=== PATIENT | male | born 1995 | race Caucasian/White ===

== ENCOUNTER 2019-07-16 16:09 | Emergency (ER) | payer OTHER ==
[~2019-07-16] VITALS: Ht 180.3 cm; Wt 73.2 kg
--- NOTE | 2019-07-16 18:37 | REP ---
Right hand four views: There is question of a fracture at the base of the fourth digit metacarpal. This should be correlated with clinical point tenderness. It is seen on one-view. Mineralization and joint spaces are otherwise normal. There is no other fracture or dislocation. There are no calcifications or foreign bodies. Electronically Signed by Russel Reza MD 07/16/2019 06:29 P
[2019-07-16 19:03] VITALS: BP 128/89
[2019-08-02] MEDS ORDERED: SERT25TA88 PO (09:05)
== END 2019-07-16 19:04 | disposition home or self-care (01) ==
LOC: M ED 16:09
DX: S62.344A Nondisplaced fracture of base of fourth metacarpal bone, right hand, initial encounter for closed fracture (principal); W19.XXXA Unspecified fall, initial encounter; Y92.9 Unspecified place or not applicable; Y93.9 Activity, unspecified; Y99.9 Unspecified external cause status

== ENCOUNTER 2019-07-26 23:04 | Inpatient (IN) | payer OTHER ==
[~2019-07-26] VITALS: Ht 180.3 cm; Wt 73.5 kg
[2019-07-26] MEDS ORDERED: NS 1,000 ML IV ONE (23:15)
[2019-07-26 23:27] LABS: BASO % 0.5 % (0.0-1.0); EOS # 0.1 10^3/uL (0.0-0.5); EOS % 1.6 % (0.0-3.0); HEMATOCRIT 41.8 % (42.0-52.0); HEMOGLOBIN 14.6 g/dl (13.5-17.5); LYMPH # 4.2 10^3/uL (1.5-5.0); LYMPH % 56.7 % (24.0-44.0); MEAN CORPUSCULAR HEMOGLOBIN 33.3 pg (27.0-33.0); MEAN CORPUSCULAR HGB CONC 34.9 g/dl (32.0-36.5); MEAN CORPUSCULAR VOLUME 95.4 fl (80.0-96.0); MONO # 0.7 10^3/uL (0.0-0.8); MONO % 9.1 % (0.0-5.0); NEUTROPHILS # 2.4 10^3/uL (1.5-8.5); NEUTROPHILS % 31.8 % (36.0-66.0); PLATELET COUNT, AUTOMATED 260 10^3/uL (150-450); RED BLOOD COUNT 4.38 10^6/uL (4.30-6.10); WHITE BLOOD COUNT 7.5 10^3/uL (4.0-10.0)
[2019-07-27] LABS: ACETAMINOPHEN LEVEL < 2.0 UG/ML (10.0-30.0); ALBUMIN 4.1 GM/DL (3.2-5.2); ALT/SGPT 69 U/L (12-78); BILIRUBIN,DIRECT < 0.1 MG/DL (0.0-0.2); BILIRUBIN,TOTAL 0.2 MG/DL (0.2-1.0); BLOOD UREA NITROGEN 10 MG/DL (7-18); CALCIUM LEVEL 8.4 MG/DL (8.5-10.1); CARBON DIOXIDE LEVEL 32 MEQ/L (21-32); CHLORIDE LEVEL 106 MEQ/L (98-107); CPK CREATINE PHOSPHOKINASE 532 U/L (39-308); CREATININE FOR GFR 1.32 MG/DL (0.70-1.30); GLOMERULAR FILTRATION RATE > 60.0 (>60); GLUCOSE, FASTING 110 MG/DL (70-100); SALICYLATE LEVEL < 1.7 MG/DL (5.0-30.0); SODIUM LEVEL 144 MEQ/L (136-145); TOTAL PROTEIN 7.4 GM/DL (6.4-8.2)
[2019-07-27 00:17] LABS: AMPHETAMINES LEVEL URINE NEGATIVE (NEGATIVE); BARBITURATES URINE NEGATIVE (NEGATIVE); BENZODIAZEPINES URINE NEGATIVE (NEGATIVE); CANNABINOIDS URINE NEGATIVE (NEGATIVE); COCAINE METABOLITE URINE NEGATIVE (NEGATIVE); METHADONE URINE NEGATIVE (NEGATIVE); OPIATES URINE NEGATIVE (NEGATIVE); PHENCYCLIDINE URINE NEGATIVE (NEGATIVE)
[2019-07-27] MEDS ORDERED: MAALOX 30 ML SUSP *UDC PO PRN (15:00)
[2019-07-27] MEDS ORDERED: MOM 30ML SUSPENSION UDC PO PRN (15:00)
[2019-07-27] MEDS ORDERED: IBUPROFEN 400 MG TAB PO PRN (15:00)
[2019-07-27 20:40] VITALS: BP 134/83
[2019-07-28] MEDS ORDERED: traZODone 50 MG TAB PO PRN
[2019-07-28 06:57] VITALS: BP 136/93
[2019-07-28 06:58] VITALS: BP 136/93
[2019-07-28 09:00] VITALS: BP 167/97
[2019-07-28] MEDS: FOLIC ACID 1 MG TAB PO SCH (09:19)
[2019-07-28] MEDS: LORazepam 2 MG TAB PO PRN ×2 (09:19→11:40)
[2019-07-28] MEDS: THIAMINE 100 MG TAB PO SCH ×2 (09:19→21:05)
[2019-07-28] MEDS: MULTIVITAMINS/MINERALS THERAP 1 TAB PO SCH (09:19)
--- NOTE | 2019-07-28 10:37 | MHHPEPDOC ---
General Date Of Admission: Jul 27, 2019 Legal Status: 9.37 Chief Complaint "I was drinking and took an OD pills" History of Present Illness HISTORY OF THE PRESENT ILLNESS: Patient is a 23 -year-old , male, who presented to the ED Friday night via ambulance. His had called EMS reporting the patient had taken 11 buspirone pills. In the ED he reported that he took pills because he wanted to give up. He also reported that he has been having a difficult time for a few weeks and he feels like a failure, though he did not elaborate on these feelings in the ED. He also reported that he has a history of feeling like he wishes he would go to sleep and not wake up but denies SI. Psychiatric Review of Systems Depression (2 or more weeks): depressed mood (denies at the momnt but reports depressed mood on admission), anhedonia (no longer interested in video games like he used to be), insomnia/hypersomnia, feelings of excess/guilt, feelings of worthlesness, decreased energy, difficulty concentrating, suicidal thoughts Bijal (4 or more days of): denies Psychosis: denies PTSD: denies Anxiety: situational anxiety, stressor related anxiety, panic attacks (once a month) Anxiety/ 6 months or more of: restlessness, keyed up, difficulty concentrating, muscle tension, sleep disturbance Past Psychiatric History Previous Psychiatric Diagnosis: depression and anxiety, behavioral health at [place], never medicated. Previous Psychiatric Admissions: none. Suicide Attempts: none prior to this. Psychiatric Follow-up:none. Psychiatric medications: none Past Medical History Medical Problems none Head Injury: No Seizures: No Hospitalizations: No Surgeries: No Family Medical/Psychiatric HX Medical Problems Bio father - testicular cancer, possibly mid 50's Psychiatric Disorders: No Addiction: Yes (Bio father) Suicide Attemps/Completions: No Addiction History nicotine (vape for 4 years), alcohol (1-3 on weekdays and 6-9 on weekends), denies (illicit drug use) Social History Childhood: raised by bio mother and adoptive father. Abuse/Trauma: none. Current Living Situation: lives in a home with , 2 y/o daughter and dog. Education: High school diploma. Employment: [employer]. Social Support: reports good family and friend support. Legal: none. Marital: , 1 2y/o daughter Mental Status Examination General Appearance: well groomed, appears stated age, hospital scubs/clothing Build: average Demeanor: average Eye Contact: average Activity: average Behavior: cooperative Speech: clear, normal volume, reg/rate,rhythm,volume Mood: euthymic, anxious Mood "better" Affect: appropriate, congruent, anxious Thought Process: logical/linear Thought Content (Delusions): none reported, denies SI, HI, AVH Thought Content (Other): none reported, appropriate, coherent Thought Content (Aggressive): none reported Perception (Hallucinations): none reported Perception (Other): none reported Cognition (Impairment of): none reported Cognition(Intelligence Est.): average Oriented: Awake, Alert, Oriented times three Insight: fair Judgment: Fair Psychosis: Denies Diagnoses depression unspecified r/o substance induced depression alcohol use d/o A-FIB/CHADSVASC A-FIB History Current/History of A-Fib/PAF?: No Current PO Anticoag Therapy: No Treatment Treatment ordered: NONE Reason Anticoagulant not given: Not indicated/[id number] Assessment Patient reports he couldn't believe he would ever attempt suicide. He remembers drinking a lot on Friday, feeling really sad and decided to take some pills (buspar that a friend had left in his home when he lived in [place] and was not prescribed to him). He does not remember what pills he took (advised him it was buspar) but remembers taking the OD, and doesn't fully remember how he ended up in the hospital. He knows his contacted someone and he was brought in by ambulance. He reports that he remembers feeling relieved when he woke up, and happy to be alive after he had overdosed. He states that he never thought he w ould do something like this, and is open to getting help so that this never happens again. He reports he has felt depressed for a long time and has been having on and off anxiety for a while but has never officially been diagnosed with depression or anxiety. He is agreeable to starting zoloft for depression and anxiety, risks/benefits discussed, and states his takes it and finds it beneficial. Will also provide him with vistaril 25mg q6hr prn anxiety. He is on a [facility] protocol for alcohol withdrawal and states he's still having withdrawal symptoms improved with ativan. He is open to senior living treatment for alcohol use d/o in the future. He denies SI/HI, hallucinations, delusions. Feels safe here. Initial Treatment Plan 1. Patient was admitted on a 9.39 status. 2. Complete history was obtained. 3. With patients permission, family will be contacted and database will be expanded. 4. Patients medication regimen will be reviewed and changed accordingly. 5. Patient will be provided with protected environment. 6. Patient will be treated with individual, group, and milieu therapies. 7. Patient will receive supportive psych-education. 8. Discharge planning will commence immediately. 9. Outpatient follow-up treatment will be strongly recommended. 10. The initial treatment plan will focus initially on: * Depression. * Risk for suicide. 11. ciwa protocol with ativan available for alcohol withdrawal, zoloft 25mg daily, vistaril 25mg q6hr prn anxiety ESTIMATED LENGTH OF STAY: 7-10 DAYS. TIME SPENT COUNSELING AND COORDINATING INITIAL CARE: 60 minutes. Vital Signs Vital Signs Date Time Temp Pulse Resp B/P (MAP) Pulse Ox O2 Delivery O2 Flow Rate FiO2 07/28/19 09:00 52 167/97 07/28/19 06:57 98.3 12 07/27/19 20:40 100 07/27/19 18:45 Room Air Medications No Active Prescriptions or Reported Meds Allergies Coded Allergies: No Known Allergies (Verified Allergy, Unknown, 07/26/19) KANIKA PELLETIER DO Jul 28, 2019 10:37 am
[2019-07-28 11:19] VITALS: BP 160/80
[2019-07-28 12:27] VITALS: BP 158/96
[2019-07-28] MEDS ORDERED: hydrOXYzine 25 MG TAB PO PRN (13:15)
[2019-07-28] MEDS ORDERED: SERTRALINE HCL 25 MG TABLET PO ONE (13:30)
[2019-07-28 14:45] VITALS: BP 150/104
--- NOTE | 2019-07-28 16:42 | ECGEPIP ---
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
--- NOTE | 2019-07-28 18:29 | HPEPDOC ---
General Date of Admission Jul 27, 2019 at 14:56 Date of Service: Jul 28, 2019 Chief Complaint The patient is a 23-year-old male admitted with a reason for visit of Unspecified Depressive Disorder. Source: Patient, RN notes reviewed Exam Limitations: No limitations Timing/Duration: Day(s) Severity: Mild Associated Symptoms: Denies Symptoms History of Present Illness This 23-year-old male seen in the mental health unit. He apparently has depression with suicidal ideation. He took an overdose of BuSpar tablets. He took 11 tablets of unknown size. Patient states he did not have any real effects from doing this. He did not note excessive sleepiness, he did not have any nausea or vomiting. The patient also does have a significant alcohol use history. He can drink anywhere from one to 3 drinks per day during the week to up to 9 drinks per day during the weekend. He tends to drink "white claw" and "[employer] Ice". He notes that when he stops drinking. He does feel shakiness the next day. Home Medications No Active Prescriptions or Reported Meds Allergies Coded Allergies: No Known Allergies (Verified Allergy, Unknown, 07/26/19) Past Medical History Medical History Patient denies any significant past medical history that he sees a doctor for Surgical History Patient denies surgical history Family History Significant Family History: Other (there is family history of alcoholism) Social History * Smoker: current smoker (the patient vapes and has been for 5-6 years) Alcohol: heavy (Kristina 3 drinks up to 9 drinks per day) Drugs: marijuana (states he used this during middle school otherwise does not use anything) Recent Travel/Sick Contacts: Denies: Recent travel, Recent sick contacts Psychosocial History: Depression The patient is in the . He maintains a good physical regimen running at least 2 miles per day or so. A-FIB/CHADSVASC A-FIB History Current/History of A-Fib/PAF?: No Current PO Anticoag Therapy: No Review of Systems Other systems 10 systems reviewed and are otherwise negative except as stated in the HPI. Physical Examination General Exam: Positive: Cooperative, No Acute Distress Eye Exam: Positive: PERRLA, Conjunctiva & lids normal, Other Eye Symptoms (the patient does have scleral and conjunctival injection) ENT Exam: Positive: Atraumatic, Mucous membr. moist/pink, Pharynx Normal, Nares Patent Neck Exam: Positive: Supple Chest Exam: Positive: Clear to auscultation Heart Exam: Positive: Rate Normal Abdomen Exam: Positive: Normal bowel sounds Extremity Exam: Positive: Normal pulses Skin Exam: Positive: Nl turgor and temperature Neuro Exam: Positive: Other (the patient is tremulous, which would be consistent with alcohol withdrawal) Psych Exam: Positive: Oriented x 3, Other (the patient does have findings of depression) Vital Signs Vital Signs Date Time Temp Pulse Resp B/P (MAP) Pulse Ox O2 Delivery O2 Flow Rate FiO2 07/28/19 14:45 150/104 07/28/19 12:27 99.5 64 16 07/27/19 20:40 100 07/27/19 18:45 Room Air Assessment/Plan 1. Intentional overdose. The patient overdose with 11 tablets of BuSpar. He does not appear to have had any negative medical sequelae from this. 2. Alcohol intoxication/withdrawal. The patient was admitted with a blood alcohol level of 330 mg/dL. He is appropriately placed on an alcohol withdrawal protocol by Ciwa scale. The patient endorses making efforts to maintain sobriety. 3. Mild rhabdomyolysis. The patient does have elevated CK at 532. Creatinine is 1.32. Patient does not have a known history of kidney disease. Plans are to encourage hydration and to recheck CK and creatinine for trend. The patient is otherwise medically stable. We will continue to follow CK and creatinine. Plan / VTE VTE Prophylaxis Ordered?: No (patient is fully ambulatory) VTE Exclusion Mechanical Proph: Low Risk for VTE VTE Exclusion Pharmacological: At Low Risk for VTE Plan Diet: Continue Current Activity: Continue Current Medications: Other Med: (patient will receive Ativan per [facility] protocol) Diagnostics: Repeat Labs in AM Anticipated Discharge: Home JOSH OHOKS MD Jul 28, 2019 18:29
[2019-07-29 06:55] VITALS: BP 131/63
[2019-07-29 07:34] LABS: BLOOD UREA NITROGEN 9 MG/DL (7-18); CALCIUM LEVEL 9.8 MG/DL (8.5-10.1); CARBON DIOXIDE LEVEL 31 MEQ/L (21-32); CHLORIDE LEVEL 100 MEQ/L (98-107); CPK CREATINE PHOSPHOKINASE 153 U/L (39-308); CREATININE FOR GFR 1.15 MG/DL (0.70-1.30); GLOMERULAR FILTRATION RATE > 60.0 (>60); GLUCOSE, FASTING 93 MG/DL (70-100); SODIUM LEVEL 138 MEQ/L (136-145)
[2019-07-29 08:20] VITALS: BP 144/93
[2019-07-29] MEDS: THIAMINE 100 MG TAB PO SCH ×2 (08:45→20:18)
[2019-07-29] MEDS: MULTIVITAMINS/MINERALS THERAP 1 TAB PO SCH (08:45)
[2019-07-29] MEDS: FOLIC ACID 1 MG TAB PO SCH (08:45)
[2019-07-29] MEDS: SERTRALINE HCL 25 MG TABLET PO SCH (08:46)
--- NOTE | 2019-07-29 10:57 | MHIPNPDOC ---
[facility] Progress Note Progress Note DATE OF SERVICE: 07/29/19 HISTORY: Patient is a 23 -year-old , male, who presented to the ED Friday night via ambulance. His had called EMS reporting the patient had taken 11 buspirone pills. In the ED he reported that he took pills because he wanted to give up. He also reported that he has been having a difficult time for a few weeks and he feels like a failure, though he did not elaborate on these feelings in the ED. He also reported that he has a history of feeling like he wishes he would go to sleep and not wake up but denies SI. Patient reports he couldn't believe he would ever attempt suicide. He remembers drinking a lot on Friday, feeling really sad and decided to take some pills (buspar that a friend had left in his home when he lived in [place] and was not prescribed to him). He does not remember what pills he took (advised him it was buspar) but remembers taking the OD, and doesn't fully remember how he ended up in the hospital. He knows his contacted someone and he was brought in by ambulance. He reports that he remembers feeling relieved when he woke up, and happy to be alive after he had overdosed. He states that he never thought he would do something like this, and is open to getting help so that this never happens again. He reports he has felt depressed for a long time and has been having on and off anxiety for a while but has never officially been diagnosed with depression or anxiety. He is agreeable to starting zoloft for depression and anxiety, risks/benefits discussed, and states his takes it and finds it beneficial. Will also provide him with vistaril 25mg q6hr prn anxiety. He is on a [facility] protocol for alcohol withdrawal and states he's still having withdraw al symptoms improved with ativan. He is open to skilled nursing treatment for alcohol use d/o in the future. He denies SI/HI, hallucinations, delusions. Feels safe here. VITAL SIGNS: See below. NEW TEST RESULTS: CPK wnl CURRENT MEDICATIONS: See below. MENTAL STATUS EXAMINATION: General Appearance: well groomed, appears stated age, hospital scrubs/clothing Build: average Demeanor: average Eye Contact: average Activity: average, minor had tremors secondary withdrawal Behavior: cooperative Speech: clear, normal volume, reg/rate,rhythm,volume Mood: euthymic, anxious Mood "ok" Affect: appropriate, congruent, anxious Thought Process: logical/linear Thought Content (Delusions): none reported, denies SI, HI, AVH Thought Content (Other): none reported, appropriate, coherent Thought Content (Aggressive): none reported Perception (Hallucinations): none reported Perception (Other): none reported Cognition (Impairment of): none reported Cognition(Intelligence Est.): average Oriented: Awake, Alert, Oriented times three Insight: fair Judgment: Fair Psychosis: Denies DIAGNOSES: depression unspecified r/o substance induced depression alcohol use d/o ASSESSMENT:Pt seen and states he feels better today and that his alcohol withdrawal is improving and is only experiencing very minor tremors this arnaldo aldanag. Last took ativan yesterday for withdrawal symptoms. States he's tolerating his zoloft he started yesterday and is finding it beneficial. Vistaril is beneficial for his anxiety. States he slept well last night. He is social in the milieu and attending groups daily. States he talked with his yesterday and she is supportive of him. He denies SI/HI, hallucinations, delusions. Feels safe here. MANAGEMENT PLAN: continue plan Medications: [facility] protocol with ativan available for alcohol withdrawal zoloft 25mg daily vistaril 25mg q6hr prn anxiety TIME SPENT: 30 minutes. Vital Signs Vital Signs Date Time Temp Pulse Resp B/P (MAP) Pulse Ox O2 Delivery O2 Flow Rate FiO2 07/29/19 08:20 59 144/93 07/29/19 06:55 98.0 14 07/27/19 20:40 100 07/27/19 18:45 Room Air Laboratory Data 24H Labs Laboratory Tests 2 07/29/19 06:42: Anion Gap 7L, Glomerular Filtration Rate > 60.0, Blood Urea Nitrogen 9, Creatinine 1.15, Sodium Level 138, Potassium Level 4.0, Chloride Level 100, Carbon Dioxide Level 31, Calcium Level 9.8#, Total Creatine Kinase 153 CBC/BMP Laboratory Tests 07/29/19 06:42 Calcium Level 9.8 # Current Medications Current Medications Medications (Trade) Dose Ordered Sig/Pooja Route PRN Reason Start Time Stop Time Status Last Admin Dose Admin Al Hydrox/Mg Hydrox/Simethicone (Mylanta) 30 ml Q4HP PRN PO HEARTBURN/INDIGESTION 07/27/19 15:00 Folic Acid (Folic Acid) 1 mg DAILY PO 07/28/19 09:00 07/29/19 08:45 Home Med (Med Rec Complete!) ASDIRECTED XX 07/27/19 12:15 07/27/19 12:15 DC Hydroxyzine HCl (Atarax) 25 mg Q6HP PRN PO ANXIETY 07/28/19 13:15 07/28/19 21:05 Ibuprofen (Advil) 400 mg Q6HP PRN PO PAIN 07/27/19 15:00 Lorazepam (Ativan) 2 mg ASDIRECTED PRN PO SEE PROTOCOL 07/28/19 00:00 07/28/19 11:40 Magnesium Hydroxide (Milk Of Magnesia) 30 ml DAILYPRN PRN PO CONSTIPATION 07/27/19 15:00 Multivitamins (Theragram-M) 1 tab DAILY PO 07/28/19 09:00 07/29/19 08:45 Sertraline HCl (Zoloft) 25 mg DAILY PO 07/29/19 09:00 07/29/19 08:46 Thiamine HCl (Thiamine HCl) 100 mg BID PO 07/28/19 09:00 07/31/19 08:59 07/29/19 08:45 Trazodone HCl (Desyrel) 50 mg QHSP PRN PO INSOMNIA 07/28/19 00:00 07/28/19 04:00 DC Allergies Coded Allergies: No Known Allergies (Verified Allergy, Unknown, 07/26/19) KANIKA PELLETIER DO Jul 29, 2019 10:57 am
--- NOTE | 2019-07-29 14:27 | IPNPDOC ---
Text Note Date of Service The patient was seen on 07/29/19. NOTE Laboratory data reviewed. Serum creatinine has decreased from 1.32 to 1.15. CK has normalized from 532 to153. Rhabdomyolysis has resolved. Dehydration has resolved. Patient does not have any acute medical issues and we will sign off for now. Please do not hesitate to contact us if concerns occur. VS,Fishbone, I+O VS, Fishbone, I+O Laboratory Tests 07/29/19 06:42 Calcium Level 9.8 # Vital Signs Date Time Temp Pulse Resp B/P (MAP) Pulse Ox O2 Delivery O2 Flow Rate FiO2 07/29/19 08:20 59 144/93 07/29/19 06:55 98.0 14 07/27/19 20:40 100 07/27/19 18:45 Room Air JOSH HOOKS MD Jul 29, 2019 14:27
[2019-07-29 17:25] VITALS: BP 151/93
[2019-07-30 06:49] VITALS: BP 127/67
[2019-07-30 07:30] VITALS: BP 127/67
[2019-07-30] MEDS: SERTRALINE HCL 25 MG TABLET PO SCH (08:27)
[2019-07-30] MEDS: FOLIC ACID 1 MG TAB PO SCH (08:27)
[2019-07-30] MEDS: MULTIVITAMINS/MINERALS THERAP 1 TAB PO SCH (08:27)
[2019-07-30] MEDS: THIAMINE 100 MG TAB PO SCH ×2 (08:27→20:23)
--- NOTE | 2019-07-30 10:29 | MHIPNPDOC ---
[facility] Progress Note Progress Note DATE OF SERVICE: 07/30/19 HISTORY: Patient is a 23 -year-old , male, who presented to the ED Friday night via ambulance. His had called EMS reporting the patient had taken 11 buspirone pills. In the ED he reported that he took pills because he wanted to give up. He also reported that he has been having a difficult time for a few weeks and he feels like a failure, though he did not elaborate on these feelings in the ED. He also reported that he has a history of feeling like he wishes he would go to sleep and not wake up but denies SI. Patient reports he couldn't believe he would ever attempt suicide. He remembers drinking a lot on Friday, feeling really sad and decided to take some pills (buspar that a friend had left in his home when he lived in [place] and was not prescribed to him). He does not remember what pills he took (advised him it was buspar) but remembers taking the OD, and doesn't fully remember how he ended up in the hospital. He knows his contacted someone and he was brought in by ambulance. He reports that he remembers feeling relieved when he woke up, and happy to be alive after he had overdosed. He states that he never thought he would do something like this, and is open to getting help so that this never happens again. He reports he has felt depressed for a long time and has been having on and off anxiety for a while but has never officially been diagnosed with depression or anxiety. He is agreeable to starting zoloft for depression and anxiety, risks/benefits discussed, and states his takes it and finds it beneficial. Will also provide him with vistaril 25mg q6hr prn anxiety. He is on a [facility] protocol for alcohol withdrawal and states he's still having withdrawal symptoms improved with ativan. He is open to care home treatment for alcohol use d/o in the future. He denies SI/HI, hallucinations, delusions. Feels safe here. VITAL SIGNS: See below. NEW TEST RESULTS: CPK wnl CURRENT MEDICATIONS: See below. MENTAL STATUS EXAMINATION: General Appearance: well groomed, appears stated age, hospital scrubs/clothing Build: average Demeanor: average Eye Contact: average Activity: average, minor had tremors secondary withdrawal Behavior: cooperative Speech: clear, normal volume, reg/rate,rhythm,volume Mood: euthymic, anxious Mood "I feel good" Affect: appropriate, congruent, anxious Thought Process: logical/linear Thought Content (Delusions): none reported, denies SI, HI, AVH Thought Content (Other): none reported, appropriate, coherent Thought Content (Aggressive): none reported Perception (Hallucinations): none reported Perception (Other): none reported Cognition (Impairment of): none reported Cognition(Intelligence Est.): average Oriented: Awake, Alert, Oriented times three Insight: fair Judgment: Fair Psychosis: Denies DIAGNOSES: depression unspecified r/o substance induced depression alcohol use d/o ASSESSMENT:Pt seen and states he feels good today. He reports that he doesn't feel any symptoms of alcohol withdrawal today, but does state that he has "a little shakiness" consistently. Last took Ativan two days ago on Friday. States he's tolerating his Zoloft and is finding it beneficial. He states he took the Vistaril on Friday for anxiety and found it beneficial. States he slept poorly last night which he attributes to his roommate snoring and someone slamming doors in the hallway. He is social in the milieu and attending groups daily. States he talked with his yesterday and she is supportive of him. He denies SI/HI, hallucinations, delusions. Feels safe here. MANAGEMENT PLAN: continue plan Medications: [facility] protocol with ativan available for alcohol withdrawal zoloft 25mg daily vistaril 25mg q6hr prn anxiety TIME SPENT: 30 minutes. Vital Signs Vital Signs Date Time Temp Pulse Resp B/P (MAP) Pulse Ox O2 Delivery O2 Flow Rate FiO2 07/30/19 07:30 76 127/67 07/30/19 06:49 97.5 14 07/27/19 20:40 100 07/27/19 18:45 Room Air Current Medications Current Medications Medications (Trade) Dose Ordered Sig/Pooja Route PRN Reason Start Time Stop Time Status Last Admin Dose Admin Al Hydrox/Mg Hydrox/Simethicone (Mylanta) 30 ml Q4HP PRN PO HEARTBURN/INDIGESTION 07/27/19 15:00 Folic Acid (Folic Acid) 1 mg DAILY PO 07/28/19 09:00 07/30/19 08:27 Home Med (Med Rec Complete!) ASDIRECTED XX 07/27/19 12:15 07/27/19 12:15 DC Hydroxyzine HCl (Atarax) 25 mg Q6HP PRN PO ANXIETY 07/28/19 13:15 07/28/19 21:05 Ibuprofen (Advil) 400 mg Q6HP PRN PO PAIN 07/27/19 15:00 Lorazepam (Ativan) 2 mg ASDIRECTED PRN PO SEE PROTOCOL 07/28/19 00:00 07/28/19 11:40 Magnesium Hydroxide (Milk Of Magnesia) 30 ml DAILYPRN PRN PO CONSTIPATION 07/27/19 15:00 Multivitamins (Theragram-M) 1 tab DAILY PO 07/28/19 09:00 07/30/19 08:27 Sertraline HCl (Zoloft) 25 mg DAILY PO 07/29/19 09:00 07/30/19 08:27 Thiamine HCl (Thiamine HCl) 100 mg BID PO 07/28/19 09:00 07/31/19 08:59 07/30/19 08:27 Trazodone HCl (Desyrel) 50 mg QHSP PRN PO INSOMNIA 07/28/19 00:00 07/28/19 04:00 DC Allergies Coded Allergies: No Known Allergies (Verified Allergy, Unknown, 07/26/19) KANIKA PELLETIER DO Jul 30, 2019 10:29
[2019-07-30 16:04] VITALS: BP 140/92
[2019-07-30 18:10] VITALS: BP 140/92
[2019-07-31 06:09] VITALS: BP 150/69
[2019-07-31] MEDS: SERTRALINE HCL 25 MG TABLET PO SCH (08:11)
[2019-07-31] MEDS: FOLIC ACID 1 MG TAB PO SCH (08:11)
[2019-07-31] MEDS: MULTIVITAMINS/MINERALS THERAP 1 TAB PO SCH (08:11)
[2019-07-31 16:22] VITALS: BP 138/86
--- NOTE | 2019-07-31 21:56 | MHIPN ---
DATE: 07/31/2019 The patient today states "I am doing great." He says that he is not feeling depressed. He says that he did not sleep good but it is because his roommate snores. He is denying being suicidal. MENTAL STATUS EXAMINATION: This patient is alert and oriented times three. He is verbally spontaneous. No formal thought disorder noted. Eye contact is fair. Psychomotor activity is normal. Mood is good. Affect is full range and appropriate. He is not psychotic, suicidal or homicidal. Concentration is fair. Memory intact. Insight and judgment fair. DIAGNOSES: 1. Unspecified depressive disorder. 2. Rule out substance induced depression. 3. Alcohol use disorder. TREATMENT PLAN: At this point, we will further evaluate the patient for continued elevation and stabilization of his mood and for continued resolution of any suicidal ideation.
[2019-08-01] MEDS: traZODone 50 MG TAB PO PRN ×2 (00:27→22:23)
[2019-08-01 06:43] VITALS: BP 106/79
[2019-08-01] MEDS: MULTIVITAMINS/MINERALS THERAP 1 TAB PO SCH (08:03)
[2019-08-01] MEDS: FOLIC ACID 1 MG TAB PO SCH (08:03)
[2019-08-01] MEDS: SERTRALINE HCL 25 MG TABLET PO SCH (08:03)
[2019-08-01] MEDS: SODIUM CHLORIDE NASAL 0.65% SPRAY BTL (OCEAN) PRN (14:41)
[2019-08-01 16:34] VITALS: BP 128/77
[2019-08-02 06:41] VITALS: BP 111/56
[2019-08-02] MEDS: SERTRALINE HCL 25 MG TABLET PO SCH (08:20)
--- NOTE | 2019-08-02 09:03 | MHDSPDOC ---
[facility] Discharge Summary Discharge Summary DATE OF ADMISSION: Jul 27, 2019 at 2:56 pm DATE OF DISCHARGE: Aug 02, 2019 DISCHARGE DIAGNOSES: depression unspecified r/o substance induced depression alcohol use d/o REASON FOR ADMISSION: Patient is a 23 -year-old , male, who presented to the ED Friday night via ambulance. His had called EMS reporting the patient had taken 11 buspirone pills. In the ED he reported that he took pills because he wanted to give up. He also reported that he has been having a difficult time for a few weeks and he feels like a failure, though he did not elaborate on these feelings in the ED. He also reported that he has a history of feeling like he wishes he would go to sleep and not wake up but denies SI. Patient reports he couldn't believe he would ever attempt suicide. He remembers drinking a lot on Friday, feeling really sad and decided to take some pills (buspar that a friend had left in his home when he lived in [place] and was not pr escribed to him). He does not remember what pills he took (advised him it was buspar) but remembers taking the OD, and doesn't fully remember how he ended up in the hospital. He knows his contacted someone and he was brought in by ambulance. He reports that he remembers feeling relieved when he woke up, and happy to be alive after he had overdosed. He states that he never thought he would do something like this, and is open to getting help so that this never happens again. He reports he has felt depressed for a long time and has been having on and off anxiety for a while but has never officially been diagnosed with depression or anxiety. He is agreeable to starting zoloft for depression and anxiety, risks/benefits discussed, and states his takes it and finds it beneficial. Will also provide him with vistaril 25mg q6hr prn anxiety. He is on a [facility] protocol for alcohol withdrawal and states he's still having withdrawal symptoms improved with ativan. He is open to fdc treatment for alcohol use d/o in the future. He denies SI/HI, hallucinations, delusions. Feels safe here. CONSULTANTS INVOLVED: none TREATMENT AND PROGRESS ON THE UNIT : Pt was admitted to [facility], seen for psychiatric assessment and started on zoloft 25mg daily. He was provided vistaril 25mg q6hr prn anxiety and trazodone 50mg qhs prn insomnia. He was started on a ciwa protocol with ativan for alcohol withdrawal that he tolerated well with improvement of alcohol withdrawal symptoms to none and no longer requiring ativan for over 48hrs. Pt found his medications beneficial and tolerated them well. He attended groups daily during his stay. His symptoms improved with treatment. On day of discharge he denied depression, anxiety, insomnia, SI/HI, hallucinations, delusions. He was discharged home after Farhat meeting with follow-up at [facility] and [facility]. He felt safe for discharge. DISCHARGE ASSESSMENT: Pt seen and states he feels good today and is looking forward to going home today with his Farhat. He denies alcohol withdrawal symptoms. States he's tolerating his Zoloft and is finding it beneficial. He states Vistaril is beneficial for his anxiety and is tolerating it well. States he slept well last night. He is social in the milieu and attending groups daily. States his is supportive of him. He denies depression, anxiety, insomnia, SI/HI, hallucinations, delusions, alcohol withdrawal. Feels safe to be discharged home with his Farhat. MENTAL STATUS EXAMINATION ON DISCHARGE: General Appearance: well groomed, appears stated age, hospital scrubs/clothing Build: average Demeanor: average Eye Contact: average Activity: average Behavior: cooperative Speech: clear, normal volume, reg/rate,rhythm,volume Mood: euthymic, full range Mood "I feel good" Affect: appropriate, congruent Thought Process: logical/linear Thought Content (Delusions): none reported, denies SI, HI, AVH Thought Content (Other): none reported, appropriate, coherent Thought Content (Aggressive): none reported Perception (Hallucinations): none reported Perception (Other): none reported Cognition (Impairment of): none reported Cognition(Intelligence Est.): average Oriented: Awake, Alert, Oriented times three Insight: good Judgment: good Psychosis: Denies MEDICATIONS ON DISCHARGE: zoloft 25mg daily vistaril 25mg q6hr prn anxiety PLAN/FOLLOWUP ARRANGEMENTS: D/c home with follow-up at [facility] and [facility]. The amount of time spent in the coordination of care for this patient was approximately 30 minutes. Vital Signs/I&Os Vital Signs Date Time Temp Pulse Resp B/P (MAP) Pulse Ox O2 Delivery O2 Flow Rate FiO2 08/02/19 06:41 97.6 50 12 111/56 (74) 07/27/19 20:40 100 07/27/19 18:45 Room Air Medications No Active Prescriptions or Reported Meds Allergies Coded Allergies: No Known Allergies (Verified Allergy, Unknown, 07/26/19) KANIKA PELLETIER DO Aug 02, 2019 9:03 am
[2019-08-02] MEDS ORDERED: HYDR-3363 PO (09:05)
[2019-08-02] MEDS ORDERED: SERT25TA21 PO (09:05)
[2019-08-02] MEDS ORDERED: TRAZ-252 PO (09:05)
[2019-08-02] MEDS: SODIUM CHLORIDE NASAL 0.65% SPRAY BTL (OCEAN) PRN (09:39)
== END 2019-08-02 11:00 | disposition home or self-care (01) | DRG 881 ==
LOC: M ED 23:04 → M ED INP 07-27 14:56 → M PSY 07-27 20:01
PROVIDERS: ADMIT Psychiatry & Neurology Psychiatry; ATTEND Psychiatry & Neurology Psychiatry
DX: F32.9 Major depressive disorder, single episode, unspecified (principal); M62.82 Rhabdomyolysis; F10.10 Alcohol abuse, uncomplicated; F19.94 Other psychoactive substance use, unspecified with psychoactive substance-induced mood disorder; F17.200 Nicotine dependence, unspecified, uncomplicated

== ENCOUNTER 2019-08-29 20:33 | Inpatient (IN) | payer OTHER ==
[~2019-08-29] VITALS: Ht 180.3 cm; Wt 72.2 kg
[~2019-08-29 20:33] MED LIST: HYDR-3363 PO; SERT25TA21 PO; TRAZ-252 PO
[2019-08-29 21:04] LABS: RED BLOOD COUNT 5.12 10^6/uL (4.30-6.10)
[2019-08-29 21:05] LABS: HEMATOCRIT 45.6 % (42.0-52.0); HEMOGLOBIN 16.3 g/dl (13.5-17.5); MEAN CORPUSCULAR HEMOGLOBIN 31.8 pg (27.0-33.0); MEAN CORPUSCULAR HGB CONC 35.7 g/dl (32.0-36.5); MEAN CORPUSCULAR VOLUME 89.1 fl (80.0-96.0); PLATELET COUNT, AUTOMATED 250 10^3/uL (150-450)
[2019-08-29 21:25] LABS: AMPHETAMINES LEVEL URINE NEGATIVE (NEGATIVE); BARBITURATES URINE NEGATIVE (NEGATIVE); BENZODIAZEPINES URINE NEGATIVE (NEGATIVE); CANNABINOIDS URINE NEGATIVE (NEGATIVE); COCAINE METABOLITE URINE NEGATIVE (NEGATIVE); METHADONE URINE NEGATIVE (NEGATIVE); OPIATES URINE NEGATIVE (NEGATIVE); PHENCYCLIDINE URINE NEGATIVE (NEGATIVE)
[2019-08-29 21:40] LABS: ACETAMINOPHEN LEVEL < 2.0 UG/ML (10.0-30.0); ALBUMIN 4.4 GM/DL (3.2-5.2); ALT/SGPT 47 U/L (12-78); BILIRUBIN,DIRECT 0.1 MG/DL (0.0-0.2); BILIRUBIN,TOTAL 0.5 MG/DL (0.2-1.0); BLOOD UREA NITROGEN 11 MG/DL (7-18); CALCIUM LEVEL 8.7 MG/DL (8.5-10.1); CARBON DIOXIDE LEVEL 25 MEQ/L (21-32); CHLORIDE LEVEL 102 MEQ/L (98-107); CREATININE FOR GFR 0.91 MG/DL (0.70-1.30); ETHYL ALCOHOL (ETHANOL) 0.362 % (0.000-0.010); GLOMERULAR FILTRATION RATE > 60.0 (>60); GLUCOSE, FASTING 106 MG/DL (70-100); POTASSIUM SERUM 3.8 MEQ/L (3.5-5.1); SALICYLATE LEVEL < 1.7 MG/DL (5.0-30.0); SODIUM LEVEL 138 MEQ/L (136-145); TOTAL PROTEIN 8.2 GM/DL (6.4-8.2)
[2019-08-30] MEDS ORDERED: SERT25TA21 PO (12:57)
[2019-08-30] MEDS ORDERED: TRAZ1TAB10 PO (12:57)
[2019-08-30] MEDS ORDERED: HYDR-3363 PO (12:57)
[2019-08-30] MEDS ORDERED: OLANZapine ORAL DISINTEGRATING TAB 5MG PO PRN (17:00)
[2019-08-30] MEDS: THIAMINE 100 MG TAB PO SCH (17:00)
[2019-08-30] MEDS ORDERED: MAALOX 30 ML SUSP *UDC PO PRN (17:00)
[2019-08-30] MEDS ORDERED: LORazepam 2 MG TAB PO PRN (17:00)
[2019-08-30] MEDS ORDERED: MOM 30ML SUSPENSION UDC PO PRN (17:00)
[2019-08-30] MEDS ORDERED: IBUPROFEN 400 MG TAB PO PRN (17:00)
[2019-08-30 22:12] VITALS: BP 147/90
[2019-08-31 06:27] VITALS: BP 133/83
[2019-08-31 08:00] VITALS: BP 135/93
[2019-08-31] MEDS: MULTIVITAMINS/MINERALS THERAP 1 TAB PO SCH (08:45)
[2019-08-31] MEDS: FOLIC ACID 1 MG TAB PO SCH (08:45)
[2019-08-31] MEDS: NICOTINE 21MG/24HR 1 EA TRANSDERMAL TD SCH (08:45)
[2019-08-31] MEDS: THIAMINE 100 MG TAB PO SCH ×2 (08:45→23:00)
--- NOTE | 2019-08-31 11:59 | MHHPEPDOC ---
General Date Of Admission: Aug 30, 2019 Legal Status: 9.39 Chief Complaint "I want to go to rehab" History of Present Illness HISTORY OF THE PRESENT ILLNESS: Patient is a 24 -year-old , male, brought in by PD for making suicidal statements after a fight with his . Patient denies any SI on assessment, I wouldnt really do that!, and says he made the statements our of anger. Patient endorses being a heavy drinker, and says he frequently fights with his because, she thinks I can just quit without help. Patient presented to ER intoxicated and reported that him and his had gotten into a fight and that is why he was drinking. Patients called [facility] because patient was making SI statements. Patient stated that he does not remember making any statements. Patient was admitted 1 month ago to [facility] for a suicidal attempt. Patient stated he is not currently feeling suicidal. Patient denies HI, and AVH. Patient reported that he is a current patient at [facility] and his appointment was today 08/30/19. Patient reported that he is currently prescribed Zoloft, but hasnt been taking it because he doesnt think he needs it. Patient reported that he drinks EtOH daily and drinks to get drunk. Patient tried to explain chain of events that happened last night but there were many holes in his story. [facility] internal control specialist asked pt if he remembers making suicidal gestures and talking about jumping into the water and patient denied. [facility] internal control specialist spoke with patients who stated that patient was standing less than 5 feet from river at [facility]. Patients stated she had to talk him down and away from the river. Patients stated she does not feel like he is safe to go home because he often gets like this when he drinks and he is drinking daily. Patients also reported that patient is misusing his Zoloft. Patients reported that she is also going home to [place] for a few weeks to focus on her own mental health. Patients FARHAT informed [facility] internal control specialist that patient will be getting in trouble from the due to the issues his dr inking has caused. Psychiatric Review of Systems Depression (2 or more weeks): depressed mood, suicidal thoughts Bijal (4 or more days of): denies Psychosis: denies PTSD: denies Anxiety: denies Anxiety/ 6 months or more of: restlessness, keyed up, difficulty concentrating Past Psychiatric History Previous Psychiatric Diagnosis: depression and anxiety, behavioral health at [place]. depression unspecified, substance induced depression, alcohol use disorder Previous Psychiatric Admissions: Recent [facility] admission from 07/27-08/02. Suicide Attempts: Tried to OD on buspar prior to last 07/27 admission Psychiatric Follow-up: [facility] and [facility]. Psychiatric medications: zoloft 25mg daily, vistaril 25mg q6hr prn anxiety Past Medical History Medical Problems none Head Injury: No Seizures: No Hospitalizations: No Surgeries: No Family Medical/Psychiatric HX Medical Problems Bio father - testicular cancer, possibly mid 50's Psychiatric Disorders: No Addiction: Yes ((Bio father)) Suicide Attemps/Completions: No Addiction History nicotine (vape for 4 years), alcohol (1-3 on weekdays and 6-9 on weekends, Blood alcohol content: 0.362), denies (illicit drug use) Social History Childhood: raised by bio mother and adoptive father. Abuse/Trauma: none. Current Living Situation: lives in a home with , 2 y/o daughter and dog. Education: High school diploma. Employment: [employer]. Social Support: reports good family and friend support. Legal: none. Marital: , 1 2y/o daughter Mental Status Examination General Appearance: well groomed, appears stated age Build: thin Demeanor: average Eye Contact: average Activity: average Behavior: cooperative Speech: clear, spontaneous, normal volume, reg/rate,rhythm,volume Mood: euthymic Mood "Not bad" Affect: full, appropriate, congruent Thought Process: logical/linear, intact Thought Content (Delusions): none reported, denies SI, HI, AVH Thought Content (Other): none reported, appropriate Thought Content (Aggressive): none reported Perception (Hallucinations): none reported Perception (Other): none reported Cognition (Impairment of): none reported Cognition(Intelligence Est.): average Oriented: Awake, Alert, Oriented times three Insight: fair Judgment: Fair Psychosis: Denies Diagnoses depression, unspecified r/o substance induced depression alcohol use disorder A-FIB/CHADSVASC A-FIB History Current/History of A-Fib/PAF?: No Assessment Patient reports he started drinking again and feels like he is in the wrong place and that he needs to be in rehab. He feels like his mood is okay when he is not drinking and not going through withdrawal, it's really just his alcohol use problem that makes him feel this way. He is still on the same medications, Zoloft and Hydroxyzine for his depression and anxiety. He is on trazodone at night for help with sleeping. He is okay with continuing these medications while he is here. We will start the process with [facility] and his Farhat in terms of getting him into terminal make up operator inpatient rehab for alcohol use d/o. Patient denies SI, HI, AVH. Feels like his mood is ok right now. He was encouraged to continue attending group sessions. Initial Treatment Plan 1. Patient was admitted on a 9.39 status. 2. Complete history was obtained. 3. With patients permission, family will be contacted and database will be expanded. 4. Patients medication regimen will be reviewed and changed accordingly. 5. Patient will be provided with protected environment. 6. Patient will be treated with individual, group, and milieu therapies. 7. Patient will receive supportive psych-education. 8. Discharge planning will commence immediately. 9. Outpatient follow-up treatment will be strongly recommended. 10. The initial treatment plan will focus initially on: * Depression. * Risk for suicide. 11. restart zoloft, vistaril, trazodone. [facility] protocol ESTIMATED LENGTH OF STAY: 5-7 DAYS. TIME SPENT COUNSELING AND COORDINATING INITIAL CARE: 60 minutes. Vital Signs Vital Signs Date Time Temp Pulse Resp B/P (MAP) Pulse Ox O2 Delivery O2 Flow Rate FiO2 08/31/19 06:27 97.7 60 14 133/83 (100) 08/30/19 22:12 98 08/30/19 20:43 Room Air Medications Scheduled Sertraline HCl (Sertraline HCl) 25 Mg Tablet, 25 MG PO DAILY, (Reported) Scheduled PRN Hydroxyzine HCl (Hydroxyzine HCl) 25 Mg Tablet, 25 MG PO Q6H PRN for ANXIETY, (Reported) Trazodone HCl (Trazodone HCl) 50 Mg Tablet, 50 MG PO QHS PRN for SLEEP, (Reported) Allergies Coded Allergies: No Known Allergies (Verified Allergy, Unknown, 07/26/19) DEVORA CORRAL DO Aug 31, 2019 8:13 am KANIKA PELLETIER DO Aug 31, 2019 11:59 am
[2019-08-31] MEDS ORDERED: ALBUTEROL 90 MCG/ACT 8GM HFA INHALER INH PRN (12:45)
[2019-08-31] MEDS ORDERED: SERTRALINE HCL 25 MG TABLET PO ONE (13:00)
[2019-08-31] MEDS: LOSARTAN 25 MG TAB PO SCH (14:41)
[2019-08-31 14:43] LABS: HEMOGLOBIN A1c 5.3 %
[2019-08-31] MEDS ORDERED: SODIUM CHLORIDE 0.9% NASAL GEL 15GM (AYR) PRN (14:45)
--- NOTE | 2019-08-31 15:20 | REP ---
CHEST, SINGLE VIEW: Single view of the chest is performed. Extreme apices are not included on the image. No acute infiltrate is seen in the visualized lung town[place]. The heart is normal in size and the mediastinal silhouette appears unremarkable. The visualized osseous structures are intact. IMPRESSION: No evidence of acute infiltrate. Electronically Signed by Russel Matthew MD 09/01/2019 04:15 P
[2019-08-31 16:00] VITALS: BP 140/94
[2019-08-31] MEDS: hydrOXYzine 25 MG TAB PO PRN (16:27)
[2019-08-31 17:54] VITALS: BP 136/78
--- NOTE | 2019-08-31 20:22 | HPEPDOC ---
General Date of Admission Aug 30, 2019 at 16:46 Date of Service: Aug 31, 2019 Attending Physician: RIDDHI ISLAS MD Chief Complaint The patient is a 24-year-old male admitted with a reason for visit of Unspecified Depression. Source: Patient, RN/MD Exam Limitations: No limitations Timing/Duration: Week(s) Severity: Mild Associated Symptoms: Cough History of Present Illness 24-year-old male was brought in to [facility] ED by police due to being intoxicated and attempting to jump off the bridge, threatening to drown himself during an episode of intense alcohol drinking when arguing with his . He is currently serving in [employer] with commanding officer notified of his recent behavior. He has a significant medical history of nicotine dependence and he use, he states constantly, with severe alcohol intoxication constantly with suicidal ideations. He denies chest pain, dizziness, shortness of breath, heart palpitations, nausea and vomiting, dizziness, syncope, and numbness and tingling in hands and feet. He also denies been diagnosed with hypertension, diabetes, hyperlipidemia, and/or having strokes and a heart attack. He is currently inpatient under the care of mental health unit and is being evaluated by medical hospitalist services for medical clearance. Home Medications Scheduled Sertraline HCl (Sertraline HCl) 25 Mg Tablet, 25 MG PO DAILY, (Reported) Scheduled PRN Hydroxyzine HCl (Hydroxyzine HCl) 25 Mg Tablet, 25 MG PO Q6H PRN for ANXIETY, (Reported) Trazodone HCl (Trazodone HCl) 50 Mg Tablet, 50 MG PO QHS PRN for SLEEP, (Reported) Allergies Coded Allergies: No Known Allergies (Verified Allergy, Unknown, 07/26/19) Past Medical History Medical History See HPI Surgical History None Family History Significant Family History: Hypertension (dad) Social History * Smoker: other (date) Alcohol: heavy Drugs: denies Recent Travel/Sick Contacts: Denies: Recent travel, Recent sick contacts Psychosocial History: Herman SI and HI (today), Depression, Prior suicide attempt, Loose associations, Suicidal thoughts A-FIB/CHADSVASC A-FIB History Current/History of A-Fib/PAF?: No Review of Systems Constitutional: Denies: Chills, Fever, Malaise, Night Sweats, Weakness, Fatigue, Weight Loss, Lethargy, Other Eyes: Denies: Pain, Vision change, Conjunctivae inflammation, Eyelid inflammation, Redness, Other ENT: Reports: Sinus Congestion, Other Symptoms (runny nose ) Skin: Denies: Rash, Lesions, Jaundice, Bruising, Itching, Dry, Breakdown, Nail Changes, Other Pulmonary: Reports: Cough Cardiovascular: Denies: Chest Pain, Palpitations, Orthopnea, Paroxysmal Noc. Dyspnea, Edema, Lt Headedness, Other Symptoms Gastrointestinal: Denies: Nausea, Vomiting, Abdominal Pain, Diarrhea, Constipation, Melena, Hematochezia, Other Symptoms Genitourinary: Denies: Dysuria, Frequency, Incontinence, Hematuria, Retention, Other Symptoms Hematologic: Denies: Bruising, Bleeding Excessively, Petecchia, Purpura, Enlarged Lymph Nodes, Other Hematologic Endocrine: Denies: Polydipsia, Polyphagia, Polyuria, Heat Intolerance, Cold Intolerance, Other Endocrine Sx Neurological: Denies: Weakness, Numbness, Incoordination, Change in speech, Confusion, Seizures, Other Symptoms Psych: Denies: Mood Normal, Anxiety, Depression, Memory Issues, Thoughts of Self Harm, Anger, Thoughts of Harming Other, Other Psych Physical Examination General Exam: Positive: Alert, Cooperative, No Acute Distress Eye Exam: Positive: PERRLA, Conjunctiva & lids normal ENT Exam: Positive: Atraumatic, Mucous membr. moist/pink, Pharynx Normal, Tongue Midline, Other ENT (clear secretions bilaterally nares, turbinates pale, edematous and boggy) Neck Exam: Positive: Supple, +2 carotid pulse wo bruit Chest Exam: Positive: Wheezing (left apical lobe), Diminished (bilateral bases to auscultation, no intercessory muscles used during respiration) Heart Exam: Positive: Rate Normal, Normal S1, Normal S2 Abdomen Exam: Positive: Normal bowel sounds, Soft Extremity Exam: Positive: Normal pulses Skin Exam: Positive: Nl turgor and temperature Neuro Exam: Positive: Normal Gait, Strength at 5/5 X4 ext, Cranial Nerves 3-12 NL Psych Exam: Positive: Oriented x 3, Other (monotone, flat affect) Vital Signs Vital Signs Date Time Temp Pulse Resp B/P (MAP) Pulse Ox O2 Delivery O2 Flow Rate FiO2 08/31/19 17:54 98.5 80 16 136/78 (97) 08/30/19 22:12 98 08/30/19 20:43 Room Air Laboratory Data Labs 24H Laboratory Tests 2 08/31/19 13:32: Estimated Mean Plasma Glucose 105, Hemoglobin A1c 5.3 Problems (1) Suicidal ideation Status: Acute Problem Text: 24-year-old male was brought in to [facility] ED by police due to being intoxicated and attempting to jump off the bridge, threatening to drown himself during an episode of intense alcohol drinking when arguing with his . Suicidal Ideationacute Patient will continue inpatient mental health unit services Acute URIacute Plan Normal saline gel-54 times a day as needed. Bilateral nares. Wash hands frequently,, cough Check labs. CBC Monitor vital signs, weight daily Elevated liver function testacute Recheck CMP, fasting, hepatitis panel If CMP is abnormal , or if patient complains of upper right quadrant pain Cough-Acute Chest W-dbi-Jqtyle no acute disease process Nicotine dependence(Vaping)chronic Provide education. When patient is ready nicotine gum will be ready to milligrams every 2 hours as needed Major depression acute on chronic Patient will continue inpatient mental health unit services Prognosisgood DVT prophylaxisan ambulate daily. Will risk for DVT Discharge: Mental health unit Plan / VTE VTE Prophylaxis Ordered?: No VTE Exclusion Mechanical Proph: Low Risk for VTE VTE Exclusion Pharmacological: At Low Risk for VTE Plan IVF: Continue Diet: Continue Current Activity: Continue Current Diagnostics: Repeat Labs in AM Anticipated Discharge: Psych JAYME COLE Aug 31, 2019 20:22
[2019-08-31 20:34] VITALS: BP 134/87
[2019-08-31] MEDS: traZODone 50 MG TAB PO PRN (23:02)
[2019-09-01 06:32] VITALS: BP 113/62
[2019-09-01 07:16] LABS: ALT/SGPT 49 U/L (12-78); BILIRUBIN,TOTAL 1.1 MG/DL (0.2-1.0); BLOOD UREA NITROGEN 11 MG/DL (7-18); CALCIUM LEVEL 9.2 MG/DL (8.5-10.1); CARBON DIOXIDE LEVEL 29 MEQ/L (21-32); CHLORIDE LEVEL 102 MEQ/L (98-107); CREATININE FOR GFR 0.97 MG/DL (0.70-1.30); GLOMERULAR FILTRATION RATE > 60.0 (>60); GLUCOSE, FASTING 96 MG/DL (70-100); POTASSIUM SERUM 3.8 MEQ/L (3.5-5.1); SODIUM LEVEL 138 MEQ/L (136-145); TOTAL PROTEIN 7.8 GM/DL (6.4-8.2)
[2019-09-01 08:00] VITALS: BP 99/55
[2019-09-01] MEDS: THIAMINE 100 MG TAB PO SCH ×2 (08:52→21:41)
[2019-09-01] MEDS: MULTIVITAMINS/MINERALS THERAP 1 TAB PO SCH (08:52)
[2019-09-01] MEDS: SERTRALINE HCL 25 MG TABLET PO SCH (08:52)
[2019-09-01] MEDS: FOLIC ACID 1 MG TAB PO SCH (08:52)
[2019-09-01] MEDS: LOSARTAN 25 MG TAB PO SCH (08:53)
[2019-09-01] MEDS: NICOTINE 21MG/24HR 1 EA TRANSDERMAL TD SCH (08:54)
--- NOTE | 2019-09-01 08:56 | MHIPNPDOC ---
[facility] Progress Note Progress Note DATE OF SERVICE: 09/01/19 HISTORY: Patient is a 24 -year-old , male, brought in by PD for making suicidal statements after a fight with his . Patient denies any SI on assessment, I wouldnt really do that!, and says he made the statements our of anger. Patient endorses being a heavy drinker, and says he frequently fights with his because, she thinks I can just quit without help. Patient presented to ER intoxicated and reported that him and his had gotten into a fight and that is why he was drinking. Patients called [employer] because patient was making SI statements. Patient stated that he does not remember making any statements. Patient was admitted 1 month ago to [facility] for a suicidal attempt. Patient stated he is not currently feeling suicidal. Patient denies HI, and AVH. Patient reported that he is a current patient at [facility] and his appointment was today 08/30/19. Patient reported that he is currently prescribed Zoloft, but hasnt been taking it because he doesnt think he needs it. Patient reported that he drinks EtOH daily and drinks to get drunk. Patient tried to explain chain of events that happened last night but there were many holes in his story. PSA recruitment intern asked pt if he remembers making suicidal gestures and talking about jumping into the water and patient denied. PSA recruitment intern spoke with patients who stated that patient was standing less than 5 feet from river at [facility]. Patients stated she had to talk him down and away from the river. Patients stated she does not feel like he is safe to go home because he often gets like this when he drinks and he is drinking daily. Patients also reported that patient is misusing his Zoloft. Patients reported that she is also going home to [place] for a few weeks to focus on her own mental health. Patients FARHAT informed PSA recruitment intern that patient will be getting in trouble from the due to the issues his drinking has caused. Patient reports he started drinking again and feels like he is in the wrong place and that he needs to be in rehab. He feels like his mood is okay when he is not drinking and not going through withdrawal, it's really just his alcohol use problem that makes him feel this way. He is still on the same medications, Zoloft and Hydroxyzine for his depression and anxiety. He is on trazodone at night for help with sleeping. He is okay with continuing these medications while he is here. 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 Patient denies SI, HI, AVH. Feels like his mood is ok right now. He was encouraged to continue attending group sessions. VITAL SIGNS: See below. NEW TEST RESULTS: See below. CURRENT MEDICATIONS: See below. MENTAL STATUS EXAMINATION: General Appearance: well groomed, appears stated age Build: thin Demeanor: average Eye Contact: average Activity: average Behavior: cooperative Speech: clear, spontaneous, normal volume, reg/rate,rhythm,volume Mood: euthymic Mood "ok" Affect: full, appropriate, congruent Thought Process: logical/linear, intact Thought Content (Delusions): none reported, denies SI, HI, AVH Thought Content (Other): none reported, appropriate Thought Content (Aggressive): none reported Perception (Hallucinations): none reported Perception (Other): none reported Cognition (Impairment of): none reported Cognition(Intelligence Est.): average Oriented: Awake, Alert, Oriented times three Insight: fair Judgment: Fair Psychosis: Denies DIAGNOSES: depression, unspecified r/o substance induced depression alcohol use disorder ASSESSMENT:Pt seen and states that his mood is "ok". States he's tolerating the restart of his medications and denies side effects. States the vistaril is beneficial for his anxiety. Denies alcohol withdrawal this morning but did have a ciwa of 9 yesterday due to withdrawal and was given ativan with improvement in withdrawal. States he slept well last night. He is attending groups and finding them helpful. He denies SI/HI, hallucinations, delusions. Pt feels safe here. MANAGEMENT PLAN: continue plan Medications: zoloft 25mg daily vistaril 25mg q6hr prn anxiety trazodone 50mg qhs prn insomnia Ciwa protocol TIME SPENT: 30 minutes. Vital Signs Vital Signs Date Time Temp Pulse Resp B/P (MAP) Pulse Ox O2 Delivery O2 Flow Rate FiO2 09/01/19 08:00 60 99/55 09/01/19 06:32 97.3 14 08/30/19 22:12 98 08/30/19 20:43 Room Air Laboratory Data 24H Labs Laboratory Tests 2 08/31/19 13:32: Estimated Mean Plasma Glucose 105, Hemoglobin A1c 5.3 09/01/19 06:09: Anion Gap 7L, Glomerular Filtration Rate > 60.0, Blood Urea Nitrogen 11, Creatinine 0.97, Sodium Level 138, Potassium Level 3.8, Chloride Level 102, Carbon Dioxide Level 29, Calcium Level 9.2, Aspartate Amino Transf (AST/SGOT) 33, Alanine Aminotransferase (ALT/SGPT) 49, Alkaline Phosphatase 71, Total Bilirubin 1.1#H, Total Protein 7.8, Albumin 4.0, Albumin/Globulin Ratio 1.05 CBC/BMP Laboratory Tests 09/01/19 06:09 Calcium Level 9.2, Aspartate Amino Transf (AST/SGOT) 33, Alanine Aminotransferase (ALT/SGPT) 49, Alkaline Phosphatase 71, Total Bilirubin 1.1 #H, Total Protein 7.8, Albumin 4.0 Current Medications Current Medications Medications (Trade) Dose Ordered Sig/Pooja Route PRN Reason Start Time Stop Time Status Last Admin Dose Admin Al Hydrox/Mg Hydrox/Simethicone (Mylanta) 30 ml Q4HP PRN PO HEARTBURN/INDIGESTION 08/30/19 17:00 Albuterol Sulfate (Proventil, Ventolin Hfa) 2 puff Q6HP PRN INH SOB, COUGH, WHEEZE 08/31/19 12:45 08/31/19 15:25 Folic Acid (Folic Acid) 1 mg DAILY PO 08/31/19 09:00 08/31/19 08:45 Home Med (Med Rec Complete!) ASDIRECTED XX 08/30/19 13:00 08/30/19 13:00 DC Hydroxyzine HCl (Atarax) 25 mg Q6HP PRN PO ANXIETY 08/31/19 12:15 08/31/19 16:27 Ibuprofen (Advil) 400 mg Q6HP PRN PO PAIN 08/30/19 17:00 Lorazepam (Ativan) 2 mg ASDIRECTED PRN PO SEE PROTOCOL 08/30/19 17:00 08/31/19 17:08 Losartan Potassium (Cozaar) 25 mg DAILY PO 08/31/19 14:00 08/31/19 14:41 Magnesium Hydroxide (Milk Of Magnesia) 30 ml DAILYPRN PRN PO CONSTIPATION 08/30/19 17:00 Multivitamins (Theragram-M) 1 tab DAILY PO 08/31/19 09:00 08/31/19 08:45 Nicotine (Nicoderm Cq 21mg) 1 patch DAILY TD 08/31/19 09:00 Olanzapine (ZyPREXA ZYDIS) 5 mg Q4HP PRN PO AGITATION 08/30/19 17:00 Sertraline HCl (Zoloft) 25 mg DAILY PO 09/01/19 09:00 Sodium Chloride ([place] Saline Nasal Gel) APPLY SMALL MAR[place]ET[place]... Q4HP PRN NA NASAL DRYNESS 08/31/19 14:45 Thiamine HCl (Thiamine HCl) 100 mg BID PO 08/30/19 17:00 09/02/19 09:01 08/31/19 23:00 Trazodone HCl (Desyrel) 50 mg QHSP PRN PO INSOMNIA 08/30/19 17:00 08/31/19 23:02 Allergies Coded Allergies: No Known Allergies (Verified Allergy, Unknown, 07/26/19) KANIKA PELLETIER DO Sep 01, 2019 8:56 am
[2019-09-01] MEDS ORDERED: NALTREXONE 50 MG TAB PO ONE (12:00)
[2019-09-01] MEDS: hydrOXYzine 25 MG TAB PO PRN (12:53)
[2019-09-01 17:45] VITALS: BP 144/87
[2019-09-01 17:51] VITALS: BP 144/87
[2019-09-01] MEDS: traZODone 50 MG TAB PO PRN (23:06)
[2019-09-02 06:42] VITALS: BP 114/82
[2019-09-02] MEDS: NICOTINE 21MG/24HR 1 EA TRANSDERMAL TD SCH (09:00)
[2019-09-02] MEDS: LOSARTAN 25 MG TAB PO SCH (09:10)
[2019-09-02] MEDS: FOLIC ACID 1 MG TAB PO SCH (09:10)
[2019-09-02] MEDS: THIAMINE 100 MG TAB PO SCH (09:11)
[2019-09-02] MEDS: SERTRALINE HCL 25 MG TABLET PO SCH (09:11)
[2019-09-02] MEDS: NALTREXONE 50 MG TAB PO SCH (09:11)
[2019-09-02] MEDS: MULTIVITAMINS/MINERALS THERAP 1 TAB PO SCH (09:11)
--- NOTE | 2019-09-02 09:24 | MHIPNPDOC ---
[facility] Progress Note Progress Note DATE OF SERVICE: 09/02/19 HISTORY: Patient is a 24 -year-old , male, brought in by PD for making suicidal statements after a fight with his . Patient denies any SI on ass essment, I wouldnt really do that!, and says he made the statements our of anger. Patient endorses being a heavy drinker, and says he frequently fights with his because, she thinks I can just quit without help. Patient presented to ER intoxicated and reported that him and his had gotten into a fight and that is why he was drinking. Patients called [employer] because patient was making SI statements. Patient stated that he does not remember making any statements. Patient was admitted 1 month ago to [facility] for a suicidal attempt. Patient stated he is not currently feeling suicidal. Patient denies HI, and AVH. Patient reported that he is a current patient at [facility] and his appointment was today 08/30/19. Patient reported that he is currently prescribed Zoloft, but hasnt been taking it because he doesnt think he needs it. Patient reported that he drinks EtOH daily and drinks to get drunk. Patient tried to explain chain of events that happened last night but there were many holes in his story. PSA inclusion internship asked pt if he remembers making suicidal gestures and talking about jumping into the water and patient denied. PSA inclusion internship spoke with patients who stated that patient was standing less than 5 feet from river at [facility]. Patients stated she had to talk him down and away from the river. Patients stated she does not feel like he is safe to go home because he often gets like this when he drinks and he is drinking daily. Patients also reported that patient is misusing his Zoloft. Patients reported that she is also going home to [place] for a few weeks to focus on her own mental health. Patients FARHAT informed PSA inclusion internship that patient will be getting in trouble from the due to the issues his drinking has caused. Patient reports he started drinking again and feels like he is in the wrong place and that he needs to be in rehab. He feels like his mood is okay when he is not drinking and not going through withdrawal, it's really just his alcohol use problem that makes him feel this way. He is still on the same medications, Zoloft and Hydroxyzine for his depression and anxiety. He is on trazodone at night for help with sleeping. He is okay with continuing these medications while he is here. 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 Patient denies SI, HI, AVH. Feels like his mood is ok right now. He was encouraged to continue attending group sessions. VITAL SIGNS: See below. NEW TEST RESULTS: See below. CURRENT MEDICATIONS: See below. MENTAL STATUS EXAMINATION: General Appearance: well groomed, appears stated age Build: thin Demeanor: average Eye Contact: average Activity: average Behavior: cooperative Speech: clear, spontaneous, normal volume, reg/rate,rhythm,volume Mood: euthymic Mood "alright" Affect: full, appropriate, congruent Thought Process: logical/linear, intact Thought Content (Delusions): none reported, denies SI, HI, AVH Thought Content (Other): none reported, appropriate Thought Content (Aggressive): none reported Perception (Hallucinations): none reported Perception (Other): none reported Cognition (Impairment of): none reported Cognition(Intelligence Est.): average Oriented: Awake, Alert, Oriented times three Insight: fair Judgment: Fair Psychosis: Denies DIAGNOSES: depression, unspecified r/o substance induced depression alcohol use disorder ASSESSMENT:Pt seen and states that his mood is "alright". States he's tolerating the restart of his medications and denies side effects. Started naltrexone yesterday after he asked about vivitrol shot for alcohol craving and tolerating well. States the vistaril is beneficial for his anxiety. Denies alcohol withdrawal and has not required ativan for 24hrs for alcohol withdrawal symptoms. States he slept well last night. He is attending groups and finding them helpful. He denies SI/HI, hallucinations, delusions. Pt feels safe here. MANAGEMENT PLAN: continue plan Medications: zoloft 25mg daily vistaril 25mg q6hr prn anxiety trazodone 50mg qhs prn insomnia naltrexone 50mg daily Ciwa protocol TIME SPENT: 30 minutes. Vital Signs Vital Signs Date Time Temp Pulse Resp B/P (MAP) Pulse Ox O2 Delivery O2 Flow Rate FiO2 09/02/19 09:10 141/96 09/02/19 06:42 97.8 60 14 08/30/19 22:12 98 08/30/19 20:43 Room Air Current Medications Current Medications Medications (Trade) Dose Ordered Sig/Pooja Route PRN Reason Start Time Stop Time Status Last Admin Dose Admin Al Hydrox/Mg Hydrox/Simethicone (Mylanta) 30 ml Q4HP PRN PO HEARTBURN/INDIGESTION 08/30/19 17:00 Albuterol Sulfate (Proventil, Ventolin Hfa) 2 puff Q6HP PRN INH SOB, COUGH, WHEEZE 08/31/19 12:45 08/31/19 15:25 Folic Acid (Folic Acid) 1 mg DAILY PO 08/31/19 09:00 09/02/19 09:10 Home Med (Med Rec Complete!) ASDIRECTED XX 08/30/19 13:00 08/30/19 13:00 DC Hydroxyzine HCl (Atarax) 25 mg Q6HP PRN PO ANXIETY 08/31/19 12:15 09/01/19 12:53 Ibuprofen (Advil) 400 mg Q6HP PRN PO PAIN 08/30/19 17:00 Lorazepam (Ativan) 2 mg ASDIRECTED PRN PO SEE PROTOCOL 08/30/19 17:00 08/31/19 17:08 Losartan Potassium (Cozaar) 25 mg DAILY PO 08/31/19 14:00 09/02/19 09:10 Magnesium Hydroxide (Milk Of Magnesia) 30 ml DAILYPRN PRN PO CONSTIPATION 08/30/19 17:00 Multivitamins (Theragram-M) 1 tab DAILY PO 08/31/19 09:00 09/02/19 09:11 Naltrexone HCl (Revia) 50 mg DAILY PO 09/02/19 09:00 09/02/19 09:11 Nicotine (Nicoderm Cq 21mg) 1 patch DAILY TD 08/31/19 09:00 Olanzapine (ZyPREXA ZYDIS) 5 mg Q4HP PRN PO AGITATION 08/30/19 17:00 Sertraline HCl (Zoloft) 25 mg DAILY PO 09/01/19 09:00 09/02/19 09:11 Sodium Chloride ([place] Saline Nasal Gel) APPLY SMALL MARIETTA... Q4HP PRN NA NASAL DRYNESS 08/31/19 14:45 Thiamine HCl (Thiamine HCl) 100 mg BID PO 08/30/19 17:00 09/02/19 09:01 DC 09/02/19 09:11 Trazodone HCl (Desyrel) 50 mg QHSP PRN PO INSOMNIA 08/30/19 17:00 09/01/19 23:06 Allergies Coded Allergies: No Known Allergies (Verified Allergy, Unknown, 07/26/19) KANIKA PELLETIER DO Sep 02, 2019 9:24 am
[2019-09-02 18:20] VITALS: BP 126/73
[2019-09-02 21:39] LABS: BASO # 0.1 10^3/uL (0.0-0.2); BASO % 0.6 % (0.0-1.0); EOS # 0.3 10^3/uL (0.0-0.5); EOS % 3.4 % (0.0-3.0); HEMATOCRIT 42.5 % (42.0-52.0); LYMPH # 2.2 10^3/uL (1.5-5.0); LYMPH % 28.3 % (24.0-44.0); MEAN CORPUSCULAR HEMOGLOBIN 32.7 pg (27.0-33.0); MEAN CORPUSCULAR HGB CONC 35.3 g/dl (32.0-36.5); MEAN CORPUSCULAR VOLUME 92.6 fl (80.0-96.0); MONO # 0.8 10^3/uL (0.0-0.8); NEUTROPHILS # 4.4 10^3/uL (1.5-8.5); NEUTROPHILS % 57.3 % (36.0-66.0); PLATELET COUNT, AUTOMATED 185 10^3/uL (150-450); RED BLOOD COUNT 4.59 10^6/uL (4.30-6.10); WHITE BLOOD COUNT 7.7 10^3/uL (4.0-10.0)
[2019-09-02] MEDS: traZODone 50 MG TAB PO PRN (23:09)
[2019-09-03 06:07] VITALS: BP 123/77
[2019-09-03] MEDS ORDERED: NALT50TA4 PO (08:55)
[2019-09-03] MEDS ORDERED: TRAZ1TAB10 PO (08:55)
[2019-09-03] MEDS ORDERED: SERT25TA21 PO (08:55)
[2019-09-03] MEDS ORDERED: HYDR-3363 PO (08:55)
--- NOTE | 2019-09-03 08:56 | MHDSPDOC ---
[facility] Discharge Summary Discharge Summary DATE OF ADMISSION: Aug 30, 2019 at 4:46 pm DATE OF DISCHARGE: Sep 03, 2019 DISCHARGE DIAGNOSES: depression, unspecified r/o substance induced depression alcohol use disorder REASON FOR ADMISSION: Patient is a 24 -year-old , male, brought in by PD for making suicidal statements after a fight with his . Patient denies any SI on assessment, I wouldnt really do that!, and says he made the statements our of anger. Patient endorses being a heavy drinker, and says he frequently fights with his because, she thinks I can just quit without help. Patient presented to ER intoxicated and reported that him and his had gotten into a fight and that is why he was drinking. Patients called [employer]PD because patient was making SI statements. Patient stated that he does not remember making any statements. Patient was admitted 1 month ago to [facility] for a suicidal attempt. Patient stated he is not currently feeling suicidal. Patient denies HI, and AVH. Patient reported that he is a current patient at [facility] and his appointment was today 08/30/19. Patient reported that he is currently prescribed Zoloft, but hasnt been taking it because he doesnt think he needs it. Patient reported that he drinks EtOH daily and drinks to get drunk. Patient tried to explain chain of events that happened last night but there were many holes in his story. PSA gallery intern asked pt if he remembers making suicidal g estures and talking about jumping into the water and patient denied. PSA gallery intern spoke with patients who stated that patient was standing less than 5 feet from river at [facility]. Patients stated she had to talk him down and away from the river. Patients stated she does not feel like he is safe to go home because he often gets like this when he drinks and he is drinking daily. Patients also reported that patient is misusing his Zoloft. Patients reported that she is also going home to [place] for a few weeks to focus on her own mental health. Patients MAYUR informed PSA gallery intern that patient will be getting in trouble from the due to the issues his drinking has caused. Patient reports he started drinking again and feels like he is in the wrong place and that he needs to be in rehab. He feels like his mood is okay when he is not drinking and not going through withdrawal, it's really just his alcohol use problem that makes him feel this way. He is still on the same medications, Zoloft and Hydroxyzine for his depression and anxiety. He is on trazodone at night for help with sleeping. He is okay with continuing these medications while he is here. We will start the process with [facility] and his Mayur in terms of getting him into [facility] for alcohol use d/o. Patient denies SI, HI, AVH. Feels like his mood is ok right now. He was encouraged to continue attending group sessions. CONSULTANTS INVOLVED: none TREATMENT AND PROGRESS ON THE UNIT : Pt was admitted to [facility], seen for psychiatric assessment and started on hzoloft 25mg daily for mood and a ciwa protocol with ativan for alcohol withdrawal. He was provided vistaril 25mg q6hr prn anxiety and trazodone 50mg qhs prn insomnia. Pt found his medications beneficial and tolerated them well. Pt's alcohol withdrawal symptoms improved during his stay to no longer requiring ativan for withdrawal symptoms for greater than 24hr prior d/c. He attended groups daily during his stay. His symptoms improved with treatment. On day of discharge he denied depression, anxiety, insomnia, SI/HI, hallucinations, delusions, alcohol withdrawal. He was discharged home after Mayur meeting with follow-up at [facility] and [facility] thru [facility].. He felt safe for discharge. DISCHARGE ASSESSMENT: Pt seen and states that his mood is "good" and he's looking forward to going home today with his Mayur and going to [facility] rehab in the future thru [facility]. States he's tolerating the restart of his medications and denies side effects. Started naltrexone Friday after he asked about vivitrol shot for alcohol craving and tolerating well. States the vistaril is beneficial for his anxiety. Denies alcohol withdrawal and has not required ativan for 24hrs for alcohol withdrawal symptoms. States he slept well last night. He is attending groups and finding them helpful. He denies depression, anxiety, insomnia, SI/HI, hallucinations, delusions, alcohol withdrawal. Pt feels safe to d/c home with his Mayur. MENTAL STATUS EXAMINATION ON DISCHARGE: General Appearance: well groomed, appears stated age Build: thin Demeanor: average Eye Contact: average Activity: average Behavior: cooperative Speech: clear, spontaneous, normal volume, reg/rate,rhythm,volume Mood: euthymic Mood "alright" Affect: full, appropriate, congruent Thought Process: logical/linear, intact Thought Content (Delusions): none reported, denies SI, HI, AVH Thought Content (Other): none reported, appropriate Thought Content (Aggressive): none reported Perception (Hallucinations): none reported Perception (Other): none reported Cognition (Impairment of): none reported Cognition(Intelligence Est.): average Oriented: Awake, Alert, Oriented times three Insight: good Judgment: good Psychosis: Denies MEDICATIONS ON DISCHARGE: zoloft 25mg daily vistaril 25mg q6hr prn anxiety trazodone 50mg qhs prn insomnia naltrexone 50mg daily PLAN/FOLLOWUP ARRANGEMENTS: D/c home with [facility] with follow-up FD and intermediate accountant inpatient rehab thru [facility]. The amount of time spent in the coordination of care for this patient was approximately 30 minutes. Vital Signs/I&Os Vital Signs Date Time Temp Pulse Resp B/P (MAP) Pulse Ox O2 Delivery O2 Flow Rate FiO2 09/03/19 06:07 97.3 51 16 123/77 (92) 08/30/19 22:12 98 08/30/19 20:43 Room Air Laboratory Data Labs 24H Laboratory Tests 2 09/02/19 21:27: Immature Granulocyte % (Auto) 0.4, White Blood Count 7.7, Red Blood Count 4.59, Hemoglobin 15.0, Hematocrit 42.5, Mean Corpuscular Volume 92.6, Mean Corpuscular Hemoglobin 32.7, Mean Corpuscular Hemoglobin Concent 35.3, Red Cell Distribution Width 11.5, Platelet Count 185, Neutrophils (%) (Auto) 57.3, Lymphocytes (%) (Auto) 28.3, Monocytes (%) (Auto) 10.0H, Eosinophils (%) (Auto) 3.4H, Basophils (%) (Auto) 0.6, Neutrophils # (Auto) 4.4, Lymphocytes # (Auto) 2.2, Monocytes # (Auto) 0.8, Eosinophils # (Auto) 0.3, Basophils # (Auto) 0.1, Nucleated Red Blood Cells % (auto) 0.0 CBC/BMP Laboratory Tests 09/02/19 21:27 Red Blood Count 4.59, Mean Corpuscular Volume 92.6, Mean Corpuscular Hemoglobin 32.7, Mean Corpuscular Hemoglobin Concent 35.3, Red Cell Distribution Width 11.5, Neutrophils (%) (Auto) 57.3, Lymphocytes (%) (Auto) 28.3, Monocytes (%) (Auto) 10.0 H, Eosinophils (%) (Auto) 3.4 H, Basophils (%) (Auto) 0.6, Neutrophils # (Auto) 4.4, Lymphocytes # (Auto) 2.2, Monocytes # (Auto) 0.8, Eosinophils # (Auto) 0.3, Basophils # (Auto) 0.1 Medications Scheduled Sertraline HCl (Sertraline HCl) 25 Mg Tablet, 25 MG PO DAILY, (Reported) Scheduled PRN Hydroxyzine HCl (Hydroxyzine HCl) 25 Mg Tablet, 25 MG PO Q6H PRN for ANXIETY, (Reported) Trazodone HCl (Trazodone HCl) 50 Mg Tablet, 50 MG PO QHS PRN for SLEEP, (Reported) Allergies Coded Allergies: No Known Allergies (Verified Allergy, Unknown, 07/26/19) KANIKA PELLETIER DO Sep 03, 2019 8:56 am
[2019-09-03] MEDS: NICOTINE 21MG/24HR 1 EA TRANSDERMAL TD SCH (09:00)
[2019-09-03 09:31] VITALS: BP 123/77
[2019-09-03] MEDS: MULTIVITAMINS/MINERALS THERAP 1 TAB PO SCH (09:31)
[2019-09-03] MEDS: SERTRALINE HCL 25 MG TABLET PO SCH (09:31)
[2019-09-03] MEDS: LOSARTAN 25 MG TAB PO SCH (09:31)
[2019-09-03] MEDS: FOLIC ACID 1 MG TAB PO SCH (09:31)
[2019-09-03] MEDS: NALTREXONE 50 MG TAB PO SCH (09:31)
== END 2019-09-03 10:20 | disposition home or self-care (01) | DRG 881 ==
LOC: M ED 20:33 → M ED INP 08-30 16:46 → M PSY 08-30 21:31
PROVIDERS: ADMIT Psychiatry & Neurology Addiction Medicine; ATTEND Psychiatry & Neurology Psychiatry
DX: F32.9 Major depressive disorder, single episode, unspecified (principal); R45.851 Suicidal ideations; F10.220 Alcohol dependence with intoxication, uncomplicated; Z63.0 Problems in relationship with spouse or partner; F17.290 Nicotine dependence, other tobacco product, uncomplicated; Z81.4 Family history of other substance abuse and dependence; Z79.899 Other long term (current) drug therapy; Z91.14 Patient's other noncompliance with medication regimen

== ENCOUNTER → 2022-11-11 | Outpatient (REF) | payer OTHER ==
[~2022-11-11] MED LIST changes: +ACAM0.05 PO; +BUPR300T92 PO; +GABA-282 PO; +NALT50TA4 PO; +SERT-138 PO; +TRAZ1TAB10 PO
[2022-11-11 16:42] LABS: BASO % 0.4 % (0.0-1.0); EOS # 0.1 10^3/uL (0.0-0.5); EOS % 1.1 % (0.0-3.0); HEMATOCRIT 45.6 % (42.0-52.0); HEMOGLOBIN 15.5 g/dl (13.5-17.5); LYMPH % 27.9 % (24.0-44.0); MEAN CORPUSCULAR HEMOGLOBIN 30.5 pg (27.0-33.0); MEAN CORPUSCULAR VOLUME 89.8 fl (80.0-96.0); MONO # 0.6 10^3/uL (0.0-0.8); MONO % 7.9 % (2.0-8.0); NEUTROPHILS # 4.5 10^3/uL (1.5-8.5); NEUTROPHILS % 62.4 % (36.0-66.0); PLATELET COUNT, AUTOMATED 259 10^3/uL (150-450); RED BLOOD COUNT 5.08 10^6/uL (4.30-6.10); WHITE BLOOD COUNT 7.1 10^3/uL (4.0-10.0)
[2022-11-11 17:17] LABS: C REACTIVE PROTEIN QUANTITATIV < 0.40 MG/DL (<1.0)
[2022-11-11 17:22] LABS: ALBUMIN 4.6 G/DL (3.2-5.2); ALKALINE PHOSPHATASE 57 U/L (46-116); ALT/SGPT 23 U/L (7.0-40); AST/SGOT 24 U/L (<34); BILIRUBIN,TOTAL 1.9 MG/DL (0.3-1.2); BLOOD UREA NITROGEN 18 MG/DL (9-23); CALCIUM LEVEL 9.8 MG/DL (8.5-10.1); CARBON DIOXIDE LEVEL 27 MMOL/L (20-31); CHLORIDE LEVEL 100 MMOL/L (98-107); CHOLESTEROL LEVEL 221 MG/DL (<200); CHOLESTEROL RISK RATIO 3.08 (<5); CREATININE FOR GFR 0.99 MG/DL (0.70-1.30); FREE T4 1.49 NG/DL (0.89-1.76); GLOMERULAR FILTRATION RATE > 60.0 (>60); GLUCOSE, FASTING 85 MG/DL (60-100); HDL CHOLESTEROL 71.6 MG/DL (>40); LDL CHOLESTEROL 121.8 MG/DL (<100); NON-HDL-C 149 MG/DL; POTASSIUM SERUM 4.3 MMOL/L (3.5-5.1); SODIUM LEVEL 139 MMOL/L (136-145); THYROID STIMULATING HORMONE 0.239 uIU/ML (0.55-4.78); TOTAL 25(OH) VITAMIN D 15.5 NG/ML (20.0-100.0); TOTAL PROTEIN 7.8 G/DL (5.7-8.2); TRIGLYCERIDES LEVEL 138 MG/DL (<150)
[2022-11-11 17:25] LABS: HEMOGLOBIN A1c 4.8 % (4.0-6.0)
== END ==
LOC: M LAB REF 16:27
PROVIDERS: ATTEND Nurse Practitioner Family
DX: Z13.228 Encounter for screening for other metabolic disorders (principal); R10.9 Unspecified abdominal pain

== ENCOUNTER → 2022-12-09 | Outpatient (REF) | payer BC, OTHER ==
[2022-12-09 18:15] LABS: CHOLESTEROL RISK RATIO 3.19 (<5); LDL CHOLESTEROL 176.8 MG/DL (<100)
[2022-12-09 18:16] LABS: FREE T4 1.31 NG/DL (0.89-1.76)
[2022-12-09 18:17] LABS: THYROID STIMULATING HORMONE 0.589 uIU/ML (0.55-4.78)
[2022-12-09 18:18] LABS: TOTAL 25(OH) VITAMIN D 15.6 NG/ML (20.0-100.0)
[2022-12-11 11:13] LABS: UNITSIGA FOR GLIADIN IGA 3 units (0-19); UNITSIGG FOR GLIADIN IGG 4 units (0-19)
== END ==
LOC: M LAB REF 17:08
PROVIDERS: ATTEND Nurse Practitioner Family
DX: R19.7 Diarrhea, unspecified (principal); R89.9 Unspecified abnormal finding in specimens from other organs, systems and tissues; E55.9 Vitamin D deficiency, unspecified

== ENCOUNTER → 2022-12-12 | Outpatient (CLI) | payer BC, OTHER | LOC: M RAD 06:41 | PROVIDERS: ATTEND Nurse Practitioner Family | DX: R10.9 Unspecified abdominal pain (principal) ==

== ENCOUNTER → 2022-12-24 | Outpatient (REF) | payer BC ==
[2022-12-24 19:15] LABS: GC DNA AMPLIFICATION NEGATIVE (NEGATIVE)
== END ==
LOC: M LAB REF 16:18
PROVIDERS: ATTEND Nurse Practitioner Family
DX: R30.0 Dysuria (principal)